=== PATIENT | female | born 1965 | race Two or more races ===

== ENCOUNTER 2017-03-14 03:27 | Inpatient (IN) | payer OTHER ==
[2017-03-14] MEDS ORDERED: ASPIRIN 81 MG TAB.CHEW ONE (03:59)
[2017-03-14] MEDS ORDERED: ASPIRIN 81 MG TAB.CHEW PO ONE (04:00)
[2017-03-14] MEDS ORDERED: IOHEXOL-350 100 ML VIAL IV ONE (05:51)
[2017-03-14] MEDS ORDERED: IV NS 0.9% 250 ML IV ONE (05:51)
[2017-03-14] MEDS ORDERED: CEFTRIAXONE 1GM BAG (ER ONLY) 1 GM/50 ML PIGGYBACK IV ONE (06:00)
[2017-03-14] MEDS ORDERED: IV NS 0.9% 1,000 ML BAG IV ONE (06:00)
[2017-03-14] MEDS ORDERED: ALBU8.5H2 INH (06:05)
[2017-03-14] MEDS ORDERED: ZOLP10TA2 PO (06:05)
[2017-03-14] MEDS ORDERED: HYDR50TA3 PO (06:05)
[2017-03-14] MEDS ORDERED: MECL-102 PO (06:05)
[2017-03-14] MEDS ORDERED: SENN8.6T6 PO (06:05)
[2017-03-14] MEDS ORDERED: DICL30AD3 PO (06:05)
[2017-03-14] MEDS ORDERED: DOCU-25 PO (06:05)
[2017-03-14] MEDS ORDERED: BISA10SU8 RC (06:05)
[2017-03-14] MEDS ORDERED: LORA1TAB82 PO (06:05)
[2017-03-14] MEDS ORDERED: ACET-868 PO (06:05)
[2017-03-14] MEDS ORDERED: METO-295 PO (06:05)
[2017-03-14] MEDS ORDERED: PROM25TA15 PO (06:05)
[2017-03-14] MEDS ORDERED: NITR0.4T6 SL (06:05)
[2017-03-14] MEDS ORDERED: CEFTRIAXONE 1GM BAG (ER ONLY) 50 ML IV ONE (06:26)
[2017-03-14] MEDS ORDERED: SITA50TA PO (06:38)
[2017-03-14] MEDS ORDERED: INSU3INS6 SUBCUT (06:38)
[2017-03-14] MEDS ORDERED: CRAN200C PO (06:38)
[2017-03-14] MEDS ORDERED: GABA800T2 PO (06:38)
[2017-03-14] MEDS ORDERED: LISI40TA4 PO (06:38)
[2017-03-14] MEDS ORDERED: OMEP20TA20 PO (06:38)
[2017-03-14] MEDS ORDERED: TIOT18CA3 INH (06:38)
[2017-03-14] MEDS ORDERED: ASPI81TA2 PO (06:38)
[2017-03-14] MEDS ORDERED: METF10002 PO (06:38)
[2017-03-14] MEDS ORDERED: FURO-144 PO (06:38)
[2017-03-14] MEDS ORDERED: ATOR40TA PO (06:38)
[2017-03-14] MEDS ORDERED: AMLO10TA2 PO (06:38)
[2017-03-14] MEDS ORDERED: SENNOSIDES 8.6 MG TABLET PO PRN (11:00)
[2017-03-14] MEDS ORDERED: BISACODYL SUPP (10 MG) 10 MG/SUPP.RECT SUPP.RECT RC SCH (11:00)
[2017-03-14] MEDS ORDERED: CRANBERRY EXTRACT PO SCH (11:00)
[2017-03-14] MEDS ORDERED: METOCLOPRAMIDE HCL 10 MG TABLET PO PRN (11:00)
[2017-03-14] MEDS ORDERED: DOCUSATE SODIUM 250 MG CAPSULE PO SCH (11:00)
[2017-03-14] MEDS ORDERED: ASPIRIN 81 MG TAB.CHEW PO SCH (11:00)
[2017-03-14] MEDS ORDERED: SITAGLIPTIN PHOSPHATE 50 MG TABLET PO SCH (11:00)
[2017-03-14] MEDS ORDERED: MECLIZINE HCL 25 MG TABLET PO PRN (11:00)
[2017-03-14] MEDS ORDERED: NITROGLYCERIN 0.4 MG/TAB BOTTLE SL PRN (11:00)
[2017-03-14] MEDS ORDERED: LORAZEPAM 1 MG TABLET PO PRN (11:00)
[2017-03-14] MEDS ORDERED: TIOTROPIUM BROMIDE 6 CAP/BOX CAP.W.DEV IH SCH (11:00)
[2017-03-14] MEDS ORDERED: PROMETHAZINE HCL 25 MG TABLET PO PRN (11:00)
[2017-03-14] MEDS ORDERED: ACETAMINOPHEN 325 MG TABLET PO PRN (11:00)
[2017-03-14] MEDS ORDERED: HYDROMORPHONE HCL 2 MG TABLET PO PRN (11:30)
[2017-03-14] MEDS: BLOOD SUGAR DIAGNOSTIC 1 EACH STRIP VI SCH ×3 (12:00→21:38)
[2017-03-14] MEDS ORDERED: DEXTROSE 50%-WATER 50 ML DISP.SYRIN IV PRN (12:00)
[2017-03-14] MEDS ORDERED: *INSULIN REGULAR(HUMULIN R)HUM 100 UNIT/ML VIAL SQ PRN (12:00)
[2017-03-14] MEDS ORDERED: Z GUARD REMEDY 2 OZ OINT TP PRN (12:00)
[2017-03-14] MEDS ORDERED: INSULIN REGULAR, HUMAN 100 UNIT/ML 3 ML VIAL SQ PRN (12:00)
[2017-03-14] MEDS: BLOOD SUGAR DIAGNOSTIC 1 EACH STRIP IN SCH ×2 (12:24→17:20)
[2017-03-14] MEDS ORDERED: ALBUTEROL FS 2.5 MG/3 ML VIAL.NEB NEB PRN ×2 (13:30→17:21)
[2017-03-14] MEDS ORDERED: LOPERAMIDE HCL (2 MG CAP) 2 MG CAPSULE PO PRN (13:30)
[2017-03-14] MEDS: AMLODIPINE BESYLATE 10 MG TABLET PO SCH (13:51)
[2017-03-14] MEDS: LISINOPRIL (20MG) 20 MG TABLET PO SCH (13:51)
[2017-03-14] MEDS: GABAPENTIN 400 MG CAPSULE PO SCH ×2 (13:52→17:19)
[2017-03-14] MEDS: FUROSEMIDE 40 MG TABLET PO SCH (13:52)
[2017-03-14] MEDS: LINAGLIPTIN 5 MG TABLET PO SCH (14:02)
[2017-03-14] MEDS: LEVOFLOXACIN (500MG) 500 MG TABLET PO SCH (14:02)
[2017-03-14] MEDS: IPRATROPIUM NEB FS 0.5 MG/2.5 ML AMPUL.NEB NEB SCH ×2 (14:10→20:18)
[2017-03-14] MEDS: METFORMIN 500 MG TABLET PO SCH (17:19)
[2017-03-14] MEDS ORDERED: ZOLPIDEM TARTRATE 10 MG TABLET PO SCH ×2 (18:00→22:00)
[2017-03-14] MEDS ORDERED: ATORVASTATIN 40 MG TABLET PO SCH ×2 (18:00→22:00)
[2017-03-14] MEDS: ONDANSETRON HCL/PF 4 MG/2 ML VIAL IV PRN (18:31)
[2017-03-14] MEDS ORDERED: INSULIN DETEMIR 100 UNIT/ML CARTRIDGE SQ SCH (22:00)
[2017-03-15] MEDS: IPRATROPIUM NEB FS 0.5 MG/2.5 ML AMPUL.NEB NEB SCH ×3 (00:33→12:57)
[2017-03-15] MEDS: ONDANSETRON HCL/PF 4 MG/2 ML VIAL IV PRN ×2 (05:17→10:27)
[2017-03-15] MEDS: BLOOD SUGAR DIAGNOSTIC 1 EACH STRIP VI SCH ×2 (06:26→13:03)
[2017-03-15] MEDS ORDERED: PANTOPRAZOLE 40 MG TABLET.DR PO SCH (07:30)
[2017-03-15] MEDS ORDERED: REGADENOSON 0.4 MG/5 ML DISP.SYRIN IVP ONE (08:00)
[2017-03-15] MEDS ORDERED: ASPIRIN 81 MG TAB.CHEW PO SCH (09:00)
[2017-03-15] MEDS ORDERED: HYDROCHLOROTHIAZIDE 25 MG TABLET PO SCH (09:00)
[2017-03-15] MEDS: METFORMIN 500 MG TABLET PO SCH (09:10)
[2017-03-15] MEDS: LINAGLIPTIN 5 MG TABLET PO SCH (09:10)
[2017-03-15] MEDS: GABAPENTIN 400 MG CAPSULE PO SCH ×2 (09:10→13:03)
[2017-03-15] MEDS: AMLODIPINE BESYLATE 10 MG TABLET PO SCH (09:11)
[2017-03-15] MEDS: FUROSEMIDE 40 MG TABLET PO SCH (09:11)
[2017-03-15] MEDS: LISINOPRIL (20MG) 20 MG TABLET PO SCH (09:11)
[2017-03-15] MEDS ORDERED: FERR-58 PO (11:17)
[2017-03-15] MEDS ORDERED: LEVO500T15 PO (11:33)
[2017-03-15] MEDS: LEVOFLOXACIN (500MG) 500 MG TABLET PO SCH (13:03)
== END 2017-03-15 15:15 | DRG 139 ==
DX: J15.9 Unspecified bacterial pneumonia (principal); Z68.43 Body mass index [BMI] 50.0-59.9, adult; I10 Essential (primary) hypertension; E11.9 Type 2 diabetes mellitus without complications; D64.9 Anemia, unspecified; E78.5 Hyperlipidemia, unspecified; R07.89 Other chest pain; E66.01 Morbid (severe) obesity due to excess calories; I70.0 Atherosclerosis of aorta; J45.909 Unspecified asthma, uncomplicated; Z79.899 Other long term (current) drug therapy; Z82.49 Family history of ischemic heart disease and other diseases of the circulatory system; Z87.891 Personal history of nicotine dependence; Z88.8 Allergy status to other drugs, medicaments and biological substances; Z83.3 Family history of diabetes mellitus; Z79.4 Long term (current) use of insulin; Z79.84 Long term (current) use of oral hypoglycemic drugs; L68.0 Hirsutism

== ENCOUNTER 2017-04-23 17:52 | Emergency (ER) | payer OTHER ==
[~2017-04-23] VITALS: Ht 160 cm; Wt 58.1 kg
[~2017-04-23 17:52] MED LIST: ACET-868 PO; ALBU8.5H2 INH; AMLO10TA2 PO; ASPI81TA2 PO; ATOR40TA PO; BISA10SU8 RC; CRAN200C PO; DICL30AD3 PO; DOCU-25 PO; FERR-58 PO; FURO-144 PO; GABA800T2 PO; HYDR50TA3 PO; INSU3INS6 SUBCUT; LEVO500T15 PO; LISI40TA4 PO; LORA1TAB82 PO; MECL-102 PO; METF10002 PO; METO-295 PO; NITR0.4T6 SL; OMEP20TA20 PO; PROM25TA15 PO; SENN8.6T6 PO; SITA50TA PO; TIOT18CA3 INH; ZOLP10TA2 PO
--- NOTE | 2017-04-23 18:00 | NUR ---
LEA FROM AN [facility] DT CHEST PAIN,PRESSURE LIKE-7/10 AT THIS TIME SINCE LAST NIGHT. PT DENIES NAUSEA AND VOMITTING, SKIN IS WARM TO TOUCH AND NON DIAPHORETIC. AFEBRLE. VSS
--- NOTE | 2017-04-23 18:03 | NUR ---
MD LEWIS MADE AWARE
--- NOTE | 2017-04-23 18:04 | NUR ---
EKG IN PROGRESS
--- NOTE | 2017-04-23 18:04 | NUR ---
MD LEWIS AT BEDSIDE
[2017-04-23 18:34] LABS: BASOPHILS # (AUTO) 0.1 /CMM (0.0-0.2); BASOPHILS % (AUTO) 0.8 % (0.0-2.0); EOSINOPHILS % (AUTO) 7.7 % (0.0-6.0); HEMATOCRIT 29 % (33-45); HEMOGLOBIN 9.4 g/dL (11.5-14.8); LYMPHOCYTES % (AUTO) 7.8 % (20.0-44.0); MEAN CORPUSCULAR HEMOGLOBIN 25 PG (26.0-33.0); MEAN CORPUSCULAR HGB CONC 32 g/dl (31.0-36.0); MEAN CORPUSCULAR VOLUME 78 fL (82-100); MONOCYTES # (AUTO) 0.4 /CMM (0.1-1.30); MONOCYTES % (AUTO) 3.5 % (2.0-12.0); NEUTROPHILS # (AUTO) 10.2 /CMM (1.8-8.9); NEUTROPHILS % (AUTO) 80.2 % (43.0-81.0); PLATELET COUNT (AUTO) 319 /CMM (150-450); RED BLOOD CELL COUNT(AUTO) 3.75 MIL/uL (4.0-5.2); WHITE BLOOD COUNT (AUTO) 12.8 K/uL (4.3-11.0)
[2017-04-23 18:54] LABS: CALCIUM, SERUM 9.1 mg/dL (8.5-10.1); CARBON DIOXIDE 32 mmol/L (21-32); CHLORIDE 98 mmol/L (98-107); GLUCOSE 158 mg/dL (74-106); POTASSIUM 5.1 mmol/L (3.5-5.1); SODIUM SERUM 135 mmol/L (136-145); UREA NITROGEN, BLOOD 16 mg/dL (7-18)
[2017-04-23 18:59] LABS: ALANINE AMINOTRANSFERASE 16 U/L (12-78); ALBUMIN 3.4 g/dL (3.4-5.0); ALKALINE PHOSPHATASE 76 U/L (46-116); ASPARTATE AMINOTRANSFERASE 13 U/L (15-37); BILIRUBIN,DIRECT 0.1 mg/dL (0.0-0.2); BILIRUBIN,TOTAL 0.2 mg/dL (0.2-1.0); INR 0.9 (0.87-1.13); PROTHROMBIN TIME 9.4 SECS (9.5-12.7); TOTAL PROTEIN, SERUM 7.6 g/dL (6.4-8.2)
[2017-04-23 19:01] LABS: TROPONIN I < 0.017 ng/mL (0.00-0.056)
[2017-04-23] MEDS ORDERED: NA P133E RC (19:01)
[2017-04-23] MEDS ORDERED: METO25TA3 PO (19:01)
[2017-04-23] MEDS ORDERED: MAGN400O6 PO (19:01)
[2017-04-23] MEDS ORDERED: ALBU2.5V38 IH (19:01)
[2017-04-23] MEDS ORDERED: FERR-58 PO (19:01)
[2017-04-23] MEDS ORDERED: MULT-659 PO (19:01)
[2017-04-23] MEDS ORDERED: POLY15DR40 EACHEYE (19:01)
[2017-04-23] MEDS ORDERED: MORP30TA59 PO (19:01)
[2017-04-23] MEDS ORDERED: BLOO-668 IN (19:03)
[2017-04-23] MEDS ORDERED: INSU100V27 SQ (19:03)
--- NOTE | 2017-04-23 19:32 | NUR ---
CALLED [facility] FOR TRANSPORT BACK TO [facility], ETA 2030
[2017-04-23 20:30] VITALS: BP 124/70
--- NOTE | 2017-04-23 20:32 | NUR ---
PATIENT WAS PICKED UP BY [facility]
== END 2017-04-23 20:34 ==
LOC: ER 17:53
DX: R07.89 Other chest pain (principal); E11.9 Type 2 diabetes mellitus without complications; G89.29 Other chronic pain; I10 Essential (primary) hypertension; J45.909 Unspecified asthma, uncomplicated; Z79.4 Long term (current) use of insulin; Z79.82 Long term (current) use of aspirin
CPT/HCPCS: 36415; 71010-TC; 80048-TC; 80076-TC; 84484-TC; 85025-TC; 85730-TC; A4606; Z7610